=== PATIENT | male | born 1940 | race Hispanic/Latino ===

== ENCOUNTER → 2019-04-21 | Outpatient (CLI) | payer MEDICARE ==
[~2019-04-21] MED LIST: ASPIRIN81 MG PO; AVODART0.5 MG PO; CARAFATE; CARVEDILOL12.5 MG PO; DICYCLOMINE HCL10 MG PO; FAMOTIDINE20 MG PO; VOLTAREN50 M1 PO; Z.0.AMLODIPINE BES2. PO; Z.0.CARDURA4 MG PO; Z.0.EFFEXOR XR150 MG PO; Z.0.ENALAPRIL MALEA2 PO; Z.0.OMEPRAZOLE40 MG PO; Z.2.DOXAZOSIN MESYLA PO
[2019-04-21 14:19] LABS: BASOPHILS % 0.3 % (0.0-1.0); EOSINOPHILS # (AUTO) 0.1 (0.0-0.4); EOSINOPHILS % 2.4 % (0.0-6.0); HEMATOCRIT 44.8 % (38.2-49.6); HEMOGLOBIN 15.4 g/dL (14.0-18.0); LYMPHOCYTES # (AUTO) 2.1 (1.0-3.2); LYMPHOCYTES % 34.5 % (18.0-39.1); MEAN CORPUSCULAR HEMOGLOBIN 32.3 pg (28-32); MEAN CORPUSCULAR HGB CONC 34.4 g/dL (31-35); MEAN CORPUSCULAR VOLUME 93.9 fL (81-99); MONOCYTES # (AUTO) 0.7 (0.2-0.8); MONOCYTES % 11.6 % (4.4-11.3); NEUTROPHILS % 50.9 % (38.7-80.0); PLATELET COUNT 212 x10e3/uL (140-360); RED BLOOD COUNT 4.77 x10e6/uL (4.3-5.7); RED CELL DISTRIBUTION WIDTH 12.1 % (11.7-14.4)
== END ==
LOC: DX 15:35 → EDSTATUS 05-27 10:00
PROVIDERS: ATTEND Internal Medicine Gastroenterology
DX: Z01.818 Encounter for other preprocedural examination (principal); Z12.11 Encounter for screening for malignant neoplasm of colon; R10.9 Unspecified abdominal pain; Z53.8 Procedure and treatment not carried out for other reasons
CPT/HCPCS: 36415; 85025; 93005

== ENCOUNTER 2021-03-01 10:57 | Emergency (ER) | payer MEDICARE ==
[~2021-03-01] VITALS: Ht 167.6 cm; Wt 69.9 kg
[2021-03-01] MEDS ORDERED: ASPIRIN 81 MG CHEW TAB PO ONE (11:15)
[2021-03-01 11:43] LABS: BASOPHILS % 0.4 % (0.0-1.0); EOSINOPHILS % 0.2 % (0.0-6.0); HEMATOCRIT 41.9 % (38.2-49.6); HEMOGLOBIN 13.7 g/dL (14.0-18.0); LYMPHOCYTES # (AUTO) 1.1 (1.0-3.2); MEAN CORPUSCULAR HEMOGLOBIN 31.4 pg (28-32); MEAN CORPUSCULAR HGB CONC 32.7 g/dL (31-35); MEAN CORPUSCULAR VOLUME 95.9 fL (81-99); MONOCYTES # (AUTO) 0.9 (0.2-0.8); NEUTROPHILS # (AUTO) 3.6 (2.1-6.9); NEUTROPHILS % 63.2 % (38.7-80.0); PLATELET COUNT 205 x10e3/uL (140-360); RED BLOOD COUNT 4.37 x10e6/uL (4.3-5.7); RED CELL DISTRIBUTION WIDTH 13.9 % (11.7-14.4)
[2021-03-01 11:55] LABS: INR 1.34; PROTHROMBIN TIME 17.5 seconds (11.9-14.5)
[2021-03-01 11:56] LABS: PARTIAL THROMBOPLASTIN TIME 38.5 seconds (23.8-35.5)
[2021-03-01 12:06] LABS: ALBUMIN 3.7 g/dL (3.5-5.0); ALBUMIN/GLOBULIN RATIO 1.3 (0.8-2.0); ANION GAP 16.8 mmol/L (8-16); CREATININE, SERUM 1.55 mg/dL (0.72-1.25); POTASSIUM 3.8 mmol/L (3.5-5.1)
[2021-03-01 12:13] LABS: CREATINE KINASE MB 4.8 ng/mL (0-5.0)
[2021-03-01] MEDS ORDERED: FUROSEMIDE INJ 10 MG/ML 4 ML VIAL IV NR (13:15)
[2021-03-01 13:54] VITALS: BP 144/66
== END 2021-03-01 14:00 | disposition home or self-care (01) ==
LOC: ER 11:22
DX: I50.9 Heart failure, unspecified (principal); R07.89 Other chest pain; I10 Essential (primary) hypertension; I48.91 Unspecified atrial fibrillation; Z20.822 Contact with and (suspected) exposure to COVID-19; R94.31 Abnormal electrocardiogram [ECG] [EKG]
CPT/HCPCS: 36415; 71045; 80053; 82550; 82553; 83880; 84484; 85025; 85610; 85730; 93005; 99284; J1940; U0002

== ENCOUNTER 2021-08-22 16:26 | Inpatient (IN) | payer MEDICARE ==
[~2021-08-22] VITALS: Ht 167.6 cm; Wt 71.7 kg
[2021-08-22] MEDS ORDERED: ONDANSETRON HCL INJ 2MG/ML 2ML 2 MG/ML VIAL IV PRN ×2 (17:00→20:00)
[2021-08-22] MEDS ORDERED: Morphine 4mg INJECTION 4 MG/ML INJ IV PRN (17:00)
[2021-08-22 17:31] LABS: BASOPHILS % 0.4 % (0.0-1.0); EOSINOPHILS % 0.4 % (0.0-6.0); HEMATOCRIT 40.3 % (38.2-49.6); HEMOGLOBIN 13.8 g/dL (14.0-18.0); LYMPHOCYTES # (AUTO) 1.4 (1.0-3.2); LYMPHOCYTES % 27.9 % (18.0-39.1); MEAN CORPUSCULAR HEMOGLOBIN 32.1 pg (28-32); MEAN CORPUSCULAR HGB CONC 34.2 g/dL (31-35); MEAN CORPUSCULAR VOLUME 93.7 fL (81-99); MONOCYTES # (AUTO) 0.8 (0.2-0.8); MONOCYTES % 15.5 % (4.4-11.3); NEUTROPHILS # (AUTO) 2.8 (2.1-6.9); NEUTROPHILS % 55.6 % (38.7-80.0); PLATELET COUNT 207 x10e3/uL (140-360); RED CELL DISTRIBUTION WIDTH 13.8 % (11.7-14.4)
[2021-08-22 17:50] LABS: ALBUMIN 3.6 g/dL (3.5-5.0); ALBUMIN/GLOBULIN RATIO 1.2 (0.8-2.0); ANION GAP 15.7 mmol/L (8-16); CREATININE, SERUM 2.25 mg/dL (0.72-1.25); POTASSIUM 3.7 mmol/L (3.5-5.1)
[2021-08-22] MEDS ORDERED: FUROSEMIDE INJ 10 MG/ML 4 ML VIAL IV ONE (18:00)
[2021-08-22] MEDS ORDERED: DONNATAL/LIDOCAINE/MAALOX 30 ML SUSP PO SCH (18:15)
[2021-08-22] MEDS ORDERED: SODIUM CHLORIDE FLUSH 10 ML SYR INJ PRN (20:00)
[2021-08-22 20:25] LABS: CLARITY,URINE SL CLOUDY (CLEAR); COLOR,URINE AMBER (YELLOW); KETONES,URINE NEGATIVE (NEGATIVE); LEUKOCYTE ESTERASE ,URINE NEGATIVE (NEGATIVE); NITRITE,URINE NEGATIVE (NEGATIVE); PROTEIN,URINE DIPSTICK 1+ (NEGATIVE); URINE UROBILINOGEN 0.2 mg/dL (0.2 - 1)
[2021-08-22 20:31] LABS: BACTERIA,URINE MODERATE /HPF; WBC,URINE (MAN) 0-5 /HPF (0-5)
[2021-08-22 20:32] LABS: AMORPHOUS SEDIMENT,URINE FEW (FEW)
[2021-08-22] MEDS ORDERED: FUROSEMIDE INJ 10 MG/ML 4 ML VIAL IV SCH (21:00)
[2021-08-22 22:20] VITALS: BP 124/68
[2021-08-22] MEDS ORDERED: CLOTRIMAZOLE-BE15 GM TOP (22:26)
[2021-08-22] MEDS ORDERED: PANTOPRAZOLE SO40 MG PO (22:26)
[2021-08-22] MEDS ORDERED: FUROSEMIDE40 MG PO (22:26)
[2021-08-22] MEDS ORDERED: OMEPRAZOLE40 MG PO (22:26)
[2021-08-22] MEDS ORDERED: DUTASTERIDE0.5 MG PO (22:26)
[2021-08-22] MEDS ORDERED: ENTRESTO 24 MG1 EACH PO (22:26)
[2021-08-22 22:35] VITALS: BP 100/54
[2021-08-23] VITALS (7 sets, daily range): BP systolic 94–124; BP diastolic 51–68
[2021-08-23 03:11] LABS: CREATINE KINASE MB 2.2 ng/mL (0-5.0)
[2021-08-23] MEDS ORDERED: PANTOPRAZOLE SOD 40 MG TABEC PO SCH (09:00)
[2021-08-23] MEDS ORDERED: METOPROLOL TARTRATE 25 MG TAB PO SCH (09:00)
[2021-08-23] MEDS: FUROSEMIDE INJ 10 MG/ML 4 ML VIAL IV SCH (10:11)
[2021-08-23] MEDS: PANTOPRAZOLE SOD 40 MG TABEC PO SCH ×2 (10:12→18:05)
[2021-08-23] MEDS: DUTASTERIDE 0.5 MG CAP PO SCH (10:12)
[2021-08-23] MEDS: ASPIRIN 81 MG ENTERIC COATED PO SCH (10:19)
[2021-08-23] MEDS: VALSARTAN/SACUBITRIL 24MG/26MG 1 EA TAB PO SCH ×2 (10:19→18:05)
[2021-08-23 11:09] LABS: CREATINE KINASE MB 2.2 ng/mL (0-5.0)
[2021-08-23 19:14] LABS: BASOPHILS % 0.4 % (0.0-1.0); EOSINOPHILS % 0.5 % (0.0-6.0); HEMATOCRIT 45.8 % (38.2-49.6); HEMOGLOBIN 14.5 g/dL (14.0-18.0); LYMPHOCYTES # (AUTO) 1.1 (1.0-3.2); LYMPHOCYTES % 19.9 % (18.0-39.1); MEAN CORPUSCULAR HEMOGLOBIN 31.9 pg (28-32); MEAN CORPUSCULAR HGB CONC 31.7 g/dL (31-35); MEAN CORPUSCULAR VOLUME 100.7 fL (81-99); MONOCYTES # (AUTO) 0.9 (0.2-0.8); MONOCYTES % 16.9 % (4.4-11.3); NEUTROPHILS # (AUTO) 3.4 (2.1-6.9); NEUTROPHILS % 62.1 % (38.7-80.0); PLATELET COUNT 172 x10e3/uL (140-360); RED BLOOD COUNT 4.55 x10e6/uL (4.3-5.7)
[2021-08-23 19:35] LABS: ALBUMIN 3.5 g/dL (3.5-5.0); ALBUMIN/GLOBULIN RATIO 1.3 (0.8-2.0); ANION GAP 20.2 mmol/L (8-16); CALCIUM 7.9 mg/dL (8.4-10.2); CREATININE, SERUM 2.87 mg/dL (0.72-1.25); POTASSIUM 4.2 mmol/L (3.5-5.1)
[2021-08-23 19:41] LABS: CREATINE KINASE MB 2.4 ng/mL (0-5.0)
[2021-08-23 20:35] LABS: THYROID STIMULATING HORMONE 0.818 uIU/mL (0.350-4.940)
[2021-08-23] MEDS: ACETAMINOPHEN 325 MG TAB PO PRN (21:17)
[2021-08-24] VITALS (8 sets, daily range): BP systolic 95–109; BP diastolic 48–55
[2021-08-24 06:42] LABS: BASOPHILS % 0.6 % (0.0-1.0); EOSINOPHILS % 0.7 % (0.0-6.0); HEMATOCRIT 40.8 % (38.2-49.6); HEMOGLOBIN 13.7 g/dL (14.0-18.0); LYMPHOCYTES # (AUTO) 1.6 (1.0-3.2); LYMPHOCYTES % 28.7 % (18.0-39.1); MEAN CORPUSCULAR HEMOGLOBIN 31.8 pg (28-32); MEAN CORPUSCULAR HGB CONC 33.6 g/dL (31-35); MEAN CORPUSCULAR VOLUME 94.7 fL (81-99); MONOCYTES % 18.1 % (4.4-11.3); NEUTROPHILS # (AUTO) 2.8 (2.1-6.9); NEUTROPHILS % 51.9 % (38.7-80.0); PLATELET COUNT 172 x10e3/uL (140-360); RED BLOOD COUNT 4.31 x10e6/uL (4.3-5.7); RED CELL DISTRIBUTION WIDTH 13.5 % (11.7-14.4)
[2021-08-24 06:56] LABS: INR 1.42; PROTHROMBIN TIME 18.5 seconds (11.9-14.5)
[2021-08-24 06:57] LABS: PARTIAL THROMBOPLASTIN TIME 39.7 seconds (23.8-35.5)
[2021-08-24 07:17] LABS: ALBUMIN 3.3 g/dL (3.5-5.0); ALBUMIN/GLOBULIN RATIO 1.2 (0.8-2.0); ANION GAP 17.9 mmol/L (8-16); CALCIUM 7.7 mg/dL (8.4-10.2); CHOL/HDL RATIO 2.6 (3.9-4.7); CREATININE, SERUM 3.29 mg/dL (0.72-1.25); POTASSIUM 3.9 mmol/L (3.5-5.1)
[2021-08-24 07:37] LABS: THYROID STIMULATING HORMONE 1.209 uIU/mL (0.350-4.940)
[2021-08-24] MEDS: DUTASTERIDE 0.5 MG CAP PO SCH (08:24)
[2021-08-24] MEDS: VALSARTAN/SACUBITRIL 24MG/26MG 1 EA TAB PO SCH (08:24)
[2021-08-24] MEDS: PANTOPRAZOLE SOD 40 MG TABEC PO SCH ×2 (08:25→15:45)
[2021-08-24] MEDS: ASPIRIN 81 MG ENTERIC COATED PO SCH (08:25)
[2021-08-24] MEDS: FUROSEMIDE INJ 10 MG/ML 4 ML VIAL IV SCH ×3 (08:25→21:02)
[2021-08-24] MEDS ORDERED: ONDANSETRON HCL 4 MG ORAL DISINTEGRATING TAB PO PRN (11:15)
[2021-08-24 13:56] LABS: TOTAL PROTEIN, URINE 22.3 mg/dL (1-14)
[2021-08-24 13:58] LABS: CLARITY,URINE CLEAR (CLEAR); COLOR,URINE YELLOW (YELLOW); KETONES,URINE NEGATIVE (NEGATIVE); LEUKOCYTE ESTERASE ,URINE NEGATIVE (NEGATIVE); NITRITE,URINE NEGATIVE (NEGATIVE); PROTEIN,URINE DIPSTICK 1+ (NEGATIVE); URINE UROBILINOGEN 0.2 mg/dL (0.2 - 1)
[2021-08-24 14:02] LABS: BACTERIA,URINE MODERATE /HPF; EPITHELIAL CELLS,URINE FEW /LPF
[2021-08-24 14:45] LABS: CREATININE,URINE RANDOM 112.94 mg/dL (63-166)
[2021-08-24] MEDS: ACETAMINOPHEN 325 MG TAB PO PRN (15:45)
[2021-08-25] VITALS: BP 109/71
[2021-08-25] MEDS: ACETAMINOPHEN 325 MG TAB PO PRN (00:28)
[2021-08-25 04:00] VITALS: BP 111/51
[2021-08-25 07:14] LABS: ALBUMIN 3.3 g/dL (3.5-5.0); ALBUMIN/GLOBULIN RATIO 1.3 (0.8-2.0); ANION GAP 15.9 mmol/L (8-16); CALCIUM 7.9 mg/dL (8.4-10.2); CREATININE, SERUM 3.33 mg/dL (0.72-1.25); MAGNESIUM 2.2 MG/DL (1.3-2.1); POTASSIUM 3.9 mmol/L (3.5-5.1)
[2021-08-25 08:32] VITALS: BP 117/53
[2021-08-25] MEDS ORDERED: FUROSEMIDE INJ 10 MG/ML 4 ML VIAL IV ONE ×2 (09:00)
[2021-08-25] MEDS: PANTOPRAZOLE SOD 40 MG TABEC PO SCH ×2 (09:04→16:37)
[2021-08-25] MEDS: DUTASTERIDE 0.5 MG CAP PO SCH (09:04)
[2021-08-25] MEDS: ASPIRIN 81 MG ENTERIC COATED PO SCH (09:04)
[2021-08-25 09:13] VITALS: BP 117/53
[2021-08-25 17:18] VITALS: BP 108/54
[2021-08-25 20:00] VITALS: BP 113/49
[2021-08-26] VITALS: BP 119/53
[2021-08-26] MEDS: ACETAMINOPHEN 325 MG TAB PO PRN (02:21)
[2021-08-26 04:00] VITALS: BP 118/52
[2021-08-26 08:00] VITALS: BP 118/52
[2021-08-26 08:44] VITALS: BP 129/57
[2021-08-26] MEDS: DUTASTERIDE 0.5 MG CAP PO SCH (09:06)
[2021-08-26] MEDS: PANTOPRAZOLE SOD 40 MG TABEC PO SCH (09:06)
[2021-08-26] MEDS: ASPIRIN 81 MG ENTERIC COATED PO SCH (09:06)
[2021-08-26] MEDS ORDERED: ASPIRIN EC81 MG PO (12:29)
[2021-08-26] MEDS ORDERED: ATORVASTATIN CA20 MG PO (12:29)
[2021-08-26 12:30] VITALS: BP 118/50
[2021-08-26 16:24] VITALS: BP 126/47
== END 2021-08-26 16:26 | disposition home or self-care (01) | DRG 291 ==
LOC: ER 16:38 → ERHOLD 19:56 → INTOOBSV 19:56 → MED/SURG2 22:08 → OBSVTOIN 08-24 10:58
PROVIDERS: ADMIT Internal Medicine; ATTEND Internal Medicine
DX: I13.0 Hypertensive heart and chronic kidney disease with heart failure and stage 1 through stage 4 chronic kidney disease, or unspecified chronic kidney disease (principal); I50.33 Acute on chronic diastolic (congestive) heart failure; N17.9 Acute kidney failure, unspecified; N18.4 Chronic kidney disease, stage 4 (severe); K29.70 Gastritis, unspecified, without bleeding; I48.91 Unspecified atrial fibrillation; I77.819 Aortic ectasia, unspecified site; I35.1 Nonrheumatic aortic (valve) insufficiency; K57.30 Diverticulosis of large intestine without perforation or abscess without bleeding; R06.01 Orthopnea; I25.10 Atherosclerotic heart disease of native coronary artery without angina pectoris; Z90.49 Acquired absence of other specified parts of digestive tract; N40.0 Benign prostatic hyperplasia without lower urinary tract symptoms
CPT/HCPCS: 36415; 71046; 71250; 74176; 76770; 80053; 80061; 81001; 82550; 82553; 82570; 82948; 83690; 83735; 83880; 84156; 84436; 84443; 84479; 84484; 84550; 85025; 85610; 85730; 93005; 93306; 94799; 99284; G0378; J1940; J2270; J2405

== ENCOUNTER 2021-12-12 17:14 | Inpatient (IN) | payer MEDICARE ==
[~2021-12-12] VITALS: Ht 167.6 cm; Wt 64.4 kg
[~2021-12-12 17:14] MED LIST changes: +ASPIRIN EC81 MG PO; +ATORVASTATIN CA20 MG PO; +CLOTRIMAZOLE-BE15 GM TOP; +DUTASTERIDE0.5 MG PO; +ENTRESTO 24 MG1 EACH PO; +FUROSEMIDE40 MG PO; +OMEPRAZOLE40 MG PO; +PANTOPRAZOLE SO40 MG PO
[2021-12-12 18:42] LABS: BASOPHILS % 0.1 % (0.0-1.0); EOSINOPHILS % 0.1 % (0.0-6.0); HEMATOCRIT 33.5 % (38.2-49.6); HEMOGLOBIN 11.6 g/dL (14.0-18.0); LYMPHOCYTES # (AUTO) 0.4 (1.0-3.2); LYMPHOCYTES % 5.5 % (18.0-39.1); MEAN CORPUSCULAR HEMOGLOBIN 30.9 pg (28-32); MEAN CORPUSCULAR HGB CONC 34.6 g/dL (31-35); MEAN CORPUSCULAR VOLUME 89.3 fL (81-99); MONOCYTES # (AUTO) 0.8 (0.2-0.8); MONOCYTES % 9.7 % (4.4-11.3); NEUTROPHILS # (AUTO) 6.6 (2.1-6.9); NEUTROPHILS % 84.2 % (38.7-80.0); PLATELET COUNT 195 x10e3/uL (140-360); RED BLOOD COUNT 3.75 x10e6/uL (4.3-5.7); RED CELL DISTRIBUTION WIDTH 16.5 % (11.7-14.4)
[2021-12-12 18:57] LABS: CLARITY,URINE CLEAR (CLEAR); COLOR,URINE YELLOW (YELLOW); KETONES,URINE NEGATIVE (NEGATIVE); LEUKOCYTE ESTERASE ,URINE TRACE (NEGATIVE); NITRITE,URINE NEGATIVE (NEGATIVE); PROTEIN,URINE DIPSTICK TRACE (NEGATIVE); URINE UROBILINOGEN 0.2 mg/dL (0.2 - 1)
[2021-12-12 19:01] LABS: AMORPHOUS SEDIMENT,URINE FEW (FEW); BACTERIA,URINE FEW /HPF; WBC,URINE (MAN) 0-5 /HPF (0-5)
[2021-12-12 19:01] LABS: ALBUMIN 2.5 g/dL (3.5-5.0); ALBUMIN/GLOBULIN RATIO 0.8 (0.8-2.0); ANION GAP 16.4 mmol/L (8-16); CREATININE, SERUM 2.91 mg/dL (0.72-1.25); POTASSIUM 3.4 mmol/L (3.5-5.1)
[2021-12-12] MEDS ORDERED: ACETAMINOPHEN 1000 MG/100 ML IV STA (19:27)
[2021-12-12] MEDS ORDERED: ONDANSETRON HCL INJ 2MG/ML 2ML 2 MG/ML VIAL IV PRN (20:45)
[2021-12-12] MEDS ORDERED: Morphine 2mg Syringe 2 MG/ML SYR IV PRN (20:45)
[2021-12-12] MEDS ORDERED: SODIUM CHLORIDE 0.9% 1000ML 1,000 ML IV ONE (20:45)
[2021-12-13] VITALS (9 sets, daily range): BP systolic 97–116; BP diastolic 50–58
[2021-12-13] MEDS ORDERED: HYDRALAZINE HCL 20 MG/ML VIAL IV PRN (00:30)
[2021-12-13] MEDS ORDERED: GUAIFENESIN/DEXTROMETHORPHAN LIQD 5 ML UDC PO PRN (00:30)
[2021-12-13] MEDS ORDERED: IPRATROPIUM BROMIDE 0.02% 2.5 ML NEB NEB PRN (00:30)
[2021-12-13] MEDS ORDERED: ALBUTEROL SULF 0.083% NEB SOLN 3 ML NEB NEB PRN (00:30)
[2021-12-13] MEDS: ACETAMINOPHEN 325 MG TAB PO PRN (01:16)
[2021-12-13 06:18] LABS: BASOPHILS % 0.2 % (0.0-1.0); EOSINOPHILS # (AUTO) 0.1 (0.0-0.4); EOSINOPHILS % 1.2 % (0.0-6.0); HEMATOCRIT 31.8 % (38.2-49.6); HEMOGLOBIN 10.6 g/dL (14.0-18.0); LYMPHOCYTES # (AUTO) 0.6 (1.0-3.2); LYMPHOCYTES % 9.1 % (18.0-39.1); MEAN CORPUSCULAR HEMOGLOBIN 30.4 pg (28-32); MEAN CORPUSCULAR HGB CONC 33.3 g/dL (31-35); MEAN CORPUSCULAR VOLUME 91.1 fL (81-99); MONOCYTES # (AUTO) 0.7 (0.2-0.8); MONOCYTES % 11.7 % (4.4-11.3); NEUTROPHILS # (AUTO) 4.7 (2.1-6.9); NEUTROPHILS % 77.5 % (38.7-80.0); PLATELET COUNT 175 x10e3/uL (140-360); RED BLOOD COUNT 3.49 x10e6/uL (4.3-5.7); RED CELL DISTRIBUTION WIDTH 16.4 % (11.7-14.4)
[2021-12-13 06:24] LABS: INR 1.48; PROTHROMBIN TIME 19.2 seconds (11.9-14.5)
[2021-12-13 06:25] LABS: PARTIAL THROMBOPLASTIN TIME 47.3 seconds (23.8-35.5)
[2021-12-13 06:33] LABS: ALBUMIN 2.2 g/dL (3.5-5.0); ALBUMIN/GLOBULIN RATIO 0.7 (0.8-2.0); ANION GAP 16.1 mmol/L (8-16); CALCIUM 8.1 mg/dL (8.4-10.2); CREATININE, SERUM 2.68 mg/dL (0.72-1.25); POTASSIUM 3.1 mmol/L (3.5-5.1)
[2021-12-13 07:01] LABS: MAGNESIUM 1.8 MG/DL (1.3-2.1); PHOSPHORUS 3.5 MG/DL (2.3-4.7)
[2021-12-13 07:02] LABS: % IRON SATURATION 9 % (15-50); IRON 15 ug/dL (65-175); TOTAL IRON BINDING CAPACITY 174 ug/dL (261-478); TRANSFERRIN 124 mg/dL (174-364)
[2021-12-13 07:19] LABS: FERRITIN 172.47 ng/mL (21.81-274.66)
[2021-12-13] MEDS: PANTOPRAZOLE SOD 40 MG TABEC PO SCH (07:30)
[2021-12-13] MEDS ORDERED: MULTIVITAMINS/MINERALS TAB PO SCH (09:00)
[2021-12-13] MEDS ORDERED: ACETAMINOPHEN 1000 MG/100 ML IV PRN (09:15)
[2021-12-13] MEDS: ACETAMINOPHEN/CODEINE 300MG - 30MG TAB PO PRN ×4 (09:40→22:38)
[2021-12-13] MEDS: DUTASTERIDE 0.5 MG CAP PO SCH (09:40)
[2021-12-13] MEDS: FUROSEMIDE 40 MG TAB PO SCH (09:41)
[2021-12-14] VITALS (8 sets, daily range): BP systolic 99–119; BP diastolic 52–74
[2021-12-14 05:59] LABS: BASOPHILS % 0.2 % (0.0-1.0); EOSINOPHILS # (AUTO) 0.1 (0.0-0.4); EOSINOPHILS % 2.2 % (0.0-6.0); HEMATOCRIT 30.7 % (38.2-49.6); HEMOGLOBIN 10.6 g/dL (14.0-18.0); LYMPHOCYTES # (AUTO) 0.7 (1.0-3.2); LYMPHOCYTES % 12.2 % (18.0-39.1); MEAN CORPUSCULAR HEMOGLOBIN 30.8 pg (28-32); MEAN CORPUSCULAR HGB CONC 34.5 g/dL (31-35); MEAN CORPUSCULAR VOLUME 89.2 fL (81-99); MONOCYTES # (AUTO) 0.8 (0.2-0.8); MONOCYTES % 14.5 % (4.4-11.3); NEUTROPHILS # (AUTO) 3.9 (2.1-6.9); NEUTROPHILS % 70.5 % (38.7-80.0); PLATELET COUNT 187 x10e3/uL (140-360); RED BLOOD COUNT 3.44 x10e6/uL (4.3-5.7); RED CELL DISTRIBUTION WIDTH 16.5 % (11.7-14.4)
[2021-12-14] MEDS: ACETAMINOPHEN/CODEINE 300MG - 30MG TAB PO PRN ×3 (06:17→17:37)
[2021-12-14 06:29] LABS: ANION GAP 13.4 mmol/L (8-16); CALCIUM 8.1 mg/dL (8.4-10.2); CREATININE, SERUM 2.42 mg/dL (0.72-1.25); POTASSIUM 3.4 mmol/L (3.5-5.1)
[2021-12-14] MEDS: PANTOPRAZOLE SOD 40 MG TABEC PO SCH (08:30)
[2021-12-14] MEDS: FUROSEMIDE 40 MG TAB PO SCH (10:00)
[2021-12-14] MEDS: DUTASTERIDE 0.5 MG CAP PO SCH (10:00)
[2021-12-14] MEDS: MIDODRINE 2.5 MG TAB PO SCH ×2 (13:15→17:25)
[2021-12-14] MEDS ORDERED: METOPROLOL SUCCINATE 25 MG TAB XL PO SCH (13:45)
[2021-12-14] MEDS ORDERED: ONDANSETRON HCL 4 MG ORAL DISINTEGRATING TAB PO PRN (15:30)
[2021-12-14] MEDS: METOPROLOL SUCCINATE 25 MG TAB XL PO SCH (21:00)
[2021-12-15] VITALS (8 sets, daily range): BP systolic 97–111; BP diastolic 48–60
[2021-12-15] MEDS: ACETAMINOPHEN/CODEINE 300MG - 30MG TAB PO PRN ×5 (01:30→23:45)
[2021-12-15] MEDS: METOPROLOL SUCCINATE 25 MG TAB XL PO SCH (09:00)
[2021-12-15] MEDS: PANTOPRAZOLE SOD 40 MG TABEC PO SCH (09:14)
[2021-12-15] MEDS: DUTASTERIDE 0.5 MG CAP PO SCH (09:15)
[2021-12-15] MEDS: MIDODRINE 2.5 MG TAB PO SCH ×3 (09:16→17:06)
[2021-12-15] MEDS: FUROSEMIDE 40 MG TAB PO SCH (12:30)
[2021-12-16] VITALS (7 sets, daily range): BP systolic 96–126; BP diastolic 48–80
[2021-12-16 05:43] LABS: BASOPHILS % 0.3 % (0.0-1.0); EOSINOPHILS # (AUTO) 0.1 (0.0-0.4); EOSINOPHILS % 1.3 % (0.0-6.0); HEMATOCRIT 33.9 % (38.2-49.6); HEMOGLOBIN 11.7 g/dL (14.0-18.0); LYMPHOCYTES # (AUTO) 0.8 (1.0-3.2); LYMPHOCYTES % 11.6 % (18.0-39.1); MEAN CORPUSCULAR HEMOGLOBIN 30.6 pg (28-32); MEAN CORPUSCULAR HGB CONC 34.5 g/dL (31-35); MEAN CORPUSCULAR VOLUME 88.7 fL (81-99); MONOCYTES # (AUTO) 0.9 (0.2-0.8); MONOCYTES % 12.5 % (4.4-11.3); NEUTROPHILS # (AUTO) 5.2 (2.1-6.9); NEUTROPHILS % 73.9 % (38.7-80.0); PLATELET COUNT 228 x10e3/uL (140-360); RED BLOOD COUNT 3.82 x10e6/uL (4.3-5.7); RED CELL DISTRIBUTION WIDTH 16.3 % (11.7-14.4)
[2021-12-16 06:26] LABS: ALBUMIN 2.3 g/dL (3.5-5.0); ALBUMIN/GLOBULIN RATIO 0.6 (0.8-2.0); ANION GAP 17.6 mmol/L (8-16); CALCIUM 8.4 mg/dL (8.4-10.2); CREATININE, SERUM 2.49 mg/dL (0.72-1.25); POTASSIUM 3.6 mmol/L (3.5-5.1)
[2021-12-16] MEDS: PANTOPRAZOLE SOD 40 MG TABEC PO SCH (07:30)
[2021-12-16] MEDS: MIDODRINE 2.5 MG TAB PO SCH ×3 (08:00→17:20)
[2021-12-16] MEDS: DUTASTERIDE 0.5 MG CAP PO SCH (09:00)
[2021-12-16] MEDS: FUROSEMIDE 40 MG TAB PO SCH (09:00)
[2021-12-16] MEDS ORDERED: SODIUM CHLORIDE 0.9% 250ML 250 ML ONE ×2 (09:58→22:26)
[2021-12-16] MEDS ORDERED: IOPAMIDOL 300MG/ML 100 ML INFUS..BTL IV ONE (09:58)
[2021-12-16] MEDS ORDERED: LIDOCAINE HCL 1% LOCAL INJ 20 ML VIAL ONE (09:58)
[2021-12-16] MEDS: ACETAMINOPHEN 325 MG TAB PO PRN (11:58)
[2021-12-16] MEDS: ACETAMINOPHEN/CODEINE 300MG - 30MG TAB PO PRN (17:20)
[2021-12-17] VITALS (8 sets, daily range): BP systolic 96–134; BP diastolic 48–67
[2021-12-17] MEDS ORDERED: FUROSEMIDE 40 MG TAB PO SCH (09:00)
[2021-12-17] MEDS: DUTASTERIDE 0.5 MG CAP PO SCH (09:10)
[2021-12-17] MEDS: MIDODRINE 2.5 MG TAB PO SCH ×3 (09:10→17:45)
[2021-12-17] MEDS: PANTOPRAZOLE SOD 40 MG TABEC PO SCH (09:11)
[2021-12-17] MEDS: FUROSEMIDE 40 MG TAB PO SCH (09:11)
[2021-12-17] MEDS: ACETAMINOPHEN/CODEINE 300MG - 30MG TAB PO PRN ×3 (13:14→21:16)
[2021-12-17] MEDS: MELATONIN 3 MG TAB PO PRN (21:17)
[2021-12-18] VITALS: BP 125/59
[2021-12-18] MEDS: ACETAMINOPHEN/CODEINE 300MG - 30MG TAB PO PRN ×3 (01:15→18:38)
[2021-12-18 04:00] VITALS: BP 112/80
[2021-12-18 08:00] VITALS: BP 112/80
[2021-12-18 08:39] LABS: CALCIUM 8.9 mg/dL (8.4-10.2); CREATININE, SERUM 2.34 mg/dL (0.72-1.25); MAGNESIUM 1.9 MG/DL (1.3-2.1); PHOSPHORUS 4.5 MG/DL (2.3-4.7)
[2021-12-18 09:02] VITALS: BP 117/57
[2021-12-18] MEDS: DUTASTERIDE 0.5 MG CAP PO SCH (09:31)
[2021-12-18] MEDS: FUROSEMIDE 40 MG TAB PO SCH (09:31)
[2021-12-18] MEDS: PANTOPRAZOLE SOD 40 MG TABEC PO SCH (09:32)
[2021-12-18] MEDS: MIDODRINE 2.5 MG TAB PO SCH ×3 (09:32→18:33)
[2021-12-18 14:24] VITALS: BP 101/52
[2021-12-18 20:00] VITALS: BP 110/72
[2021-12-19] VITALS (9 sets, daily range): BP systolic 100–151; BP diastolic 50–70
[2021-12-19] MEDS: PANTOPRAZOLE SOD 40 MG TABEC PO SCH (07:30)
[2021-12-19] MEDS: MIDODRINE 2.5 MG TAB PO SCH ×3 (08:37→17:13)
[2021-12-19] MEDS: FUROSEMIDE 40 MG TAB PO SCH (08:38)
[2021-12-19] MEDS: DUTASTERIDE 0.5 MG CAP PO SCH (08:38)
[2021-12-19 11:06] LABS: BASOPHILS % 0.4 % (0.0-1.0); EOSINOPHILS # (AUTO) 0.1 (0.0-0.4); EOSINOPHILS % 0.7 % (0.0-6.0); HEMATOCRIT 37.8 % (38.2-49.6); HEMOGLOBIN 12.3 g/dL (14.0-18.0); LYMPHOCYTES # (AUTO) 0.7 (1.0-3.2); LYMPHOCYTES % 8.5 % (18.0-39.1); MEAN CORPUSCULAR HEMOGLOBIN 30.1 pg (28-32); MEAN CORPUSCULAR HGB CONC 32.5 g/dL (31-35); MEAN CORPUSCULAR VOLUME 92.4 fL (81-99); MONOCYTES # (AUTO) 0.6 (0.2-0.8); MONOCYTES % 7.5 % (4.4-11.3); NEUTROPHILS # (AUTO) 6.8 (2.1-6.9); NEUTROPHILS % 82.7 % (38.7-80.0); PLATELET COUNT 266 x10e3/uL (140-360); RED BLOOD COUNT 4.09 x10e6/uL (4.3-5.7); RED CELL DISTRIBUTION WIDTH 16.8 % (11.7-14.4)
[2021-12-19] MEDS ORDERED: SODIUM CHLORIDE 0.9% 250ML 250 ML ONE ×2 (11:08→11:57)
[2021-12-19] MEDS ORDERED: CEFTRIAXONE 1 GM VIAL ONE (11:08)
[2021-12-19 11:23] LABS: INR 1.33; PROTHROMBIN TIME 17.6 seconds (11.9-14.5)
[2021-12-19] MEDS ORDERED: LIDOCAINE HCL 1% LOCAL INJ 20 ML VIAL ONE (11:57)
[2021-12-19] MEDS ORDERED: IOPAMIDOL 300MG/ML 100 ML INFUS..BTL IV ONE (11:57)
[2021-12-19] MEDS ORDERED: FENTANYL CITRATE/PF 100MCG/2 ML INJ ONE (12:13)
[2021-12-19] MEDS ORDERED: MIDAZOLAM HCL 2 MG/2 ML VIAL ONE (12:13)
[2021-12-19] MEDS: FUROSEMIDE INJ 10 MG/ML 4 ML VIAL IV SCH ×2 (13:51→22:24)
[2021-12-19] MEDS: SODIUM BICARBONATE 650 MG TAB PO SCH (17:12)
[2021-12-19] MEDS: ACETAMINOPHEN/CODEINE 300MG - 30MG TAB PO PRN ×2 (17:17→22:25)
[2021-12-20] VITALS (7 sets, daily range): BP systolic 118–143; BP diastolic 51–73
[2021-12-20] MEDS: ACETAMINOPHEN/CODEINE 300MG - 30MG TAB PO PRN ×3 (04:52→23:22)
[2021-12-20 05:43] LABS: BASOPHILS % 0.3 % (0.0-1.0); EOSINOPHILS # (AUTO) 0.1 (0.0-0.4); EOSINOPHILS % 1.1 % (0.0-6.0); HEMATOCRIT 36.6 % (38.2-49.6); HEMOGLOBIN 12.4 g/dL (14.0-18.0); LYMPHOCYTES # (AUTO) 1.1 (1.0-3.2); MEAN CORPUSCULAR HEMOGLOBIN 30.3 pg (28-32); MEAN CORPUSCULAR HGB CONC 33.9 g/dL (31-35); MEAN CORPUSCULAR VOLUME 89.5 fL (81-99); MONOCYTES # (AUTO) 0.7 (0.2-0.8); MONOCYTES % 10.1 % (4.4-11.3); NEUTROPHILS # (AUTO) 4.7 (2.1-6.9); PLATELET COUNT 311 x10e3/uL (140-360); RED BLOOD COUNT 4.09 x10e6/uL (4.3-5.7); RED CELL DISTRIBUTION WIDTH 16.6 % (11.7-14.4)
[2021-12-20 06:10] LABS: ALBUMIN 2.4 g/dL (3.5-5.0); ALBUMIN/GLOBULIN RATIO 0.6 (0.8-2.0); ANION GAP 18.4 mmol/L (8-16); CALCIUM 8.7 mg/dL (8.4-10.2); CREATININE, SERUM 1.85 mg/dL (0.72-1.25); POTASSIUM 3.4 mmol/L (3.5-5.1)
[2021-12-20] MEDS: PANTOPRAZOLE SOD 40 MG TABEC PO SCH (09:15)
[2021-12-20] MEDS: MIDODRINE 2.5 MG TAB PO SCH ×3 (09:16→17:15)
[2021-12-20] MEDS: DUTASTERIDE 0.5 MG CAP PO SCH (09:16)
[2021-12-20] MEDS: FUROSEMIDE INJ 10 MG/ML 4 ML VIAL IV SCH (09:16)
[2021-12-20] MEDS: SODIUM BICARBONATE 650 MG TAB PO SCH ×2 (09:16→17:14)
[2021-12-20] MEDS ORDERED: POTASSIUM CHLORIDE 10MEQ EA PO ONE (11:30)
[2021-12-20] MEDS ORDERED: PHENAZOPYRIDINE HCL 100 MG TAB PO PRN (20:00)
[2021-12-20] MEDS: PHENAZOPYRIDINE HCL 100 MG TAB PO PRN (20:35)
[2021-12-20] MEDS: TAMSULOSIN HCL 0.4 MG CAP PO SCH (20:35)
[2021-12-20] MEDS: MELATONIN 3 MG TAB PO PRN (22:44)
[2021-12-21] VITALS (8 sets, daily range): BP systolic 97–129; BP diastolic 47–65
[2021-12-21] MEDS: ACETAMINOPHEN/CODEINE 300MG - 30MG TAB PO PRN ×2 (06:30→19:10)
[2021-12-21] MEDS: PANTOPRAZOLE SOD 40 MG TABEC PO SCH (09:03)
[2021-12-21] MEDS: SODIUM BICARBONATE 650 MG TAB PO SCH ×2 (09:03→18:19)
[2021-12-21] MEDS: MIDODRINE 2.5 MG TAB PO SCH ×3 (09:04→18:19)
[2021-12-21] MEDS: DUTASTERIDE 0.5 MG CAP PO SCH (09:04)
[2021-12-21] MEDS: TAMSULOSIN HCL 0.4 MG CAP PO SCH (22:15)
[2021-12-22] VITALS (8 sets, daily range): BP systolic 89–127; BP diastolic 43–98
[2021-12-22] MEDS ORDERED: PHENYLEPH/SHARK OIL/MO/PETROL 30 GM OINT RC PRN (02:30)
[2021-12-22 06:05] LABS: BASOPHILS % 0.4 % (0.0-1.0); EOSINOPHILS # (AUTO) 0.1 (0.0-0.4); HEMATOCRIT 38.8 % (38.2-49.6); HEMOGLOBIN 12.5 g/dL (14.0-18.0); LYMPHOCYTES # (AUTO) 1.3 (1.0-3.2); LYMPHOCYTES % 18.7 % (18.0-39.1); MEAN CORPUSCULAR HEMOGLOBIN 30.6 pg (28-32); MEAN CORPUSCULAR HGB CONC 32.2 g/dL (31-35); MEAN CORPUSCULAR VOLUME 94.9 fL (81-99); MONOCYTES # (AUTO) 0.7 (0.2-0.8); MONOCYTES % 10.6 % (4.4-11.3); NEUTROPHILS # (AUTO) 4.7 (2.1-6.9); NEUTROPHILS % 68.9 % (38.7-80.0); PLATELET COUNT 262 x10e3/uL (140-360); RED BLOOD COUNT 4.09 x10e6/uL (4.3-5.7); RED CELL DISTRIBUTION WIDTH 18.1 % (11.7-14.4)
[2021-12-22 06:26] LABS: ANION GAP 19.7 mmol/L (8-16); CALCIUM 8.4 mg/dL (8.4-10.2); CREATININE, SERUM 2.08 mg/dL (0.72-1.25); POTASSIUM 3.7 mmol/L (3.5-5.1)
[2021-12-22] MEDS: DOCUSATE SODIUM 100 MG CAP PO PRN ×2 (09:15→15:18)
[2021-12-22] MEDS: MAGNESIUM/ALUMINUM/SIMETHICONE 30 ML UDC PO PRN (09:16)
[2021-12-22] MEDS: PANTOPRAZOLE SOD 40 MG TABEC PO SCH (09:16)
[2021-12-22] MEDS: DUTASTERIDE 0.5 MG CAP PO SCH (09:17)
[2021-12-22] MEDS: SODIUM BICARBONATE 650 MG TAB PO SCH ×2 (09:17→18:20)
[2021-12-22] MEDS: MIDODRINE 2.5 MG TAB PO SCH ×3 (09:17→15:17)
[2021-12-22] MEDS: ACETAMINOPHEN/CODEINE 300MG - 30MG TAB PO PRN ×2 (15:17→21:23)
[2021-12-22] MEDS: PHENAZOPYRIDINE HCL 100 MG TAB PO PRN (18:20)
[2021-12-22] MEDS: TAMSULOSIN HCL 0.4 MG CAP PO SCH (21:15)
[2021-12-22] MEDS ORDERED: SODIUM CHLORIDE 0.9% 250ML 250 ML ONE (21:27)
[2021-12-23] VITALS (7 sets, daily range): BP systolic 90–117; BP diastolic 47–71
[2021-12-23] MEDS: ACETAMINOPHEN/CODEINE 300MG - 30MG TAB PO PRN ×2 (04:29→15:37)
[2021-12-23] MEDS: PHENAZOPYRIDINE HCL 100 MG TAB PO PRN (06:46)
[2021-12-23] MEDS: DUTASTERIDE 0.5 MG CAP PO SCH (08:46)
[2021-12-23] MEDS: MIDODRINE 2.5 MG TAB PO SCH ×3 (08:46→15:37)
[2021-12-23] MEDS: PANTOPRAZOLE SOD 40 MG TABEC PO SCH (08:46)
[2021-12-23] MEDS: SODIUM BICARBONATE 650 MG TAB PO SCH ×2 (08:46→15:37)
[2021-12-23] MEDS: DOCUSATE SODIUM 100 MG CAP PO PRN (10:10)
[2021-12-23] MEDS: MAGNESIUM/ALUMINUM/SIMETHICONE 30 ML UDC PO PRN (10:10)
[2021-12-23] MEDS ORDERED: LACTULOSE SYRUP 20 GM/30 ML UDC PO ONE (15:00)
[2021-12-23] MEDS ORDERED: BISACODYL 10 MG SUPP PR ONE (20:30)
[2021-12-23] MEDS: TAMSULOSIN HCL 0.4 MG CAP PO SCH (21:00)
[2021-12-24] VITALS (7 sets, daily range): BP systolic 120–147; BP diastolic 62–86
[2021-12-24 06:39] LABS: BASOPHILS % 0.3 % (0.0-1.0); EOSINOPHILS % 0.6 % (0.0-6.0); HEMOGLOBIN 12.5 g/dL (14.0-18.0); LYMPHOCYTES # (AUTO) 0.9 (1.0-3.2); LYMPHOCYTES % 13.1 % (18.0-39.1); MEAN CORPUSCULAR HEMOGLOBIN 30.3 pg (28-32); MEAN CORPUSCULAR HGB CONC 32.9 g/dL (31-35); MEAN CORPUSCULAR VOLUME 92.2 fL (81-99); MONOCYTES # (AUTO) 0.7 (0.2-0.8); MONOCYTES % 10.1 % (4.4-11.3); NEUTROPHILS # (AUTO) 5.1 (2.1-6.9); NEUTROPHILS % 75.5 % (38.7-80.0); PLATELET COUNT 291 x10e3/uL (140-360); RED BLOOD COUNT 4.12 x10e6/uL (4.3-5.7); RED CELL DISTRIBUTION WIDTH 18.3 % (11.7-14.4)
[2021-12-24 07:20] LABS: ALBUMIN 2.7 g/dL (3.5-5.0); ALBUMIN/GLOBULIN RATIO 0.7 (0.8-2.0); ANION GAP 18.8 mmol/L (8-16); CALCIUM 8.7 mg/dL (8.4-10.2); CREATININE, SERUM 1.48 mg/dL (0.72-1.25); MAGNESIUM 2.1 MG/DL (1.3-2.1); POTASSIUM 3.8 mmol/L (3.5-5.1)
[2021-12-24] MEDS: PANTOPRAZOLE SOD 40 MG TABEC PO SCH (07:30)
[2021-12-24] MEDS: MIDODRINE 2.5 MG TAB PO SCH ×3 (08:00→16:00)
[2021-12-24] MEDS: DUTASTERIDE 0.5 MG CAP PO SCH (09:00)
[2021-12-24] MEDS: SODIUM BICARBONATE 650 MG TAB PO SCH ×2 (09:00→18:23)
[2021-12-24] MEDS: FUROSEMIDE 40 MG TAB PO SCH (09:00)
[2021-12-24] MEDS ORDERED: FUROSEMIDE INJ 10 MG/ML 4 ML VIAL IV NR (10:00)
[2021-12-24] MEDS ORDERED: FUROSEMIDE INJ 10 MG/ML 4 ML VIAL IV ONE (17:00)
[2021-12-24] MEDS: TAMSULOSIN HCL 0.4 MG CAP PO SCH (20:52)
[2021-12-25] VITALS (7 sets, daily range): BP systolic 99–124; BP diastolic 50–77
[2021-12-25] MEDS: ACETAMINOPHEN 325 MG TAB PO PRN (01:02)
[2021-12-25] MEDS: FUROSEMIDE 40 MG TAB PO SCH (09:44)
[2021-12-25] MEDS: DUTASTERIDE 0.5 MG CAP PO SCH (09:44)
[2021-12-25] MEDS: SODIUM BICARBONATE 650 MG TAB PO SCH ×2 (09:44→18:14)
[2021-12-25] MEDS: PANTOPRAZOLE SOD 40 MG TABEC PO SCH (09:44)
[2021-12-25] MEDS: MIDODRINE 2.5 MG TAB PO SCH ×3 (09:46→18:14)
[2021-12-25] MEDS: ACETAMINOPHEN/CODEINE 300MG - 30MG TAB PO PRN ×2 (09:53→18:27)
[2021-12-25] MEDS: TAMSULOSIN HCL 0.4 MG CAP PO SCH (21:13)
[2021-12-26] VITALS (8 sets, daily range): BP systolic 98–121; BP diastolic 53–79
[2021-12-26] MEDS: MIDODRINE 2.5 MG TAB PO SCH ×3 (10:09→17:57)
[2021-12-26] MEDS: PHENAZOPYRIDINE HCL 100 MG TAB PO PRN ×2 (10:10→18:07)
[2021-12-26] MEDS: ACETAMINOPHEN/CODEINE 300MG - 30MG TAB PO PRN ×2 (10:10→18:07)
[2021-12-26] MEDS: SODIUM BICARBONATE 650 MG TAB PO SCH ×2 (10:10→17:56)
[2021-12-26] MEDS: PANTOPRAZOLE SOD 40 MG TABEC PO SCH (10:10)
[2021-12-26] MEDS: DUTASTERIDE 0.5 MG CAP PO SCH (10:10)
[2021-12-26] MEDS: FUROSEMIDE 40 MG TAB PO SCH (10:14)
[2021-12-26] MEDS ORDERED: MINERAL OIL 132 ML BTL PR ONE (12:30)
[2021-12-26] MEDS: DOCUSATE SODIUM 100 MG CAP PO PRN (18:07)
[2021-12-26] MEDS: MAGNESIUM HYDROXIDE 30 ML UDC PO PRN (18:08)
[2021-12-26] MEDS: TAMSULOSIN HCL 0.4 MG CAP PO SCH (20:53)
[2021-12-27] VITALS (7 sets, daily range): BP systolic 105–130; BP diastolic 55–73
[2021-12-27] MEDS: FUROSEMIDE 40 MG TAB PO SCH (10:56)
[2021-12-27] MEDS: MIDODRINE 2.5 MG TAB PO SCH ×3 (10:56→18:18)
[2021-12-27] MEDS: PANTOPRAZOLE SOD 40 MG TABEC PO SCH (10:57)
[2021-12-27] MEDS: SODIUM BICARBONATE 650 MG TAB PO SCH ×2 (10:57→18:13)
[2021-12-27] MEDS: DUTASTERIDE 0.5 MG CAP PO SCH (10:57)
[2021-12-27] MEDS: MAGNESIUM HYDROXIDE 30 ML UDC PO PRN (11:01)
[2021-12-27 14:17] LABS: ANION GAP 13.3 mmol/L (8-16); CREATININE, SERUM 1.28 mg/dL (0.72-1.25); POTASSIUM 3.3 mmol/L (3.5-5.1)
[2021-12-27] MEDS: TAMSULOSIN HCL 0.4 MG CAP PO SCH (18:13)
[2021-12-27] MEDS: ACETAMINOPHEN 325 MG TAB PO PRN (22:07)
[2021-12-27] MEDS: MELATONIN 3 MG TAB PO PRN (22:07)
[2021-12-28 00:55] VITALS: BP 98/50
[2021-12-28 05:38] VITALS: BP 99/56
[2021-12-28 08:30] VITALS: BP 99/56
[2021-12-28] MEDS: DUTASTERIDE 0.5 MG CAP PO SCH (08:55)
[2021-12-28] MEDS: SODIUM BICARBONATE 650 MG TAB PO SCH ×2 (08:56→16:28)
[2021-12-28] MEDS: PANTOPRAZOLE SOD 40 MG TABEC PO SCH (08:56)
[2021-12-28] MEDS: FUROSEMIDE 40 MG TAB PO SCH (08:56)
[2021-12-28] MEDS: MIDODRINE 2.5 MG TAB PO SCH ×3 (08:56→16:28)
[2021-12-28 10:18] VITALS: BP 96/73
[2021-12-28] MEDS ORDERED: POTASSIUM CHLORIDE 20 MEQ TAB CR PO ONE (11:00)
[2021-12-28] MEDS: ACETAMINOPHEN 325 MG TAB PO PRN (11:53)
[2021-12-28 12:00] VITALS: BP 119/62
[2021-12-28] MEDS ORDERED: FLOMAX0.4 MG PO (15:01)
[2021-12-28] MEDS ORDERED: MIDODRINE HCL2.5 MG PO (15:01)
[2021-12-28] MEDS ORDERED: SODIUM BICARBO650 MG PO (15:01)
[2021-12-28] MEDS ORDERED: MELATONIN3 MG PO (15:01)
[2021-12-28] MEDS ORDERED: ALBUTEROL2.5 MG/3 M NEB (15:01)
[2021-12-28] MEDS ORDERED: Magnesium/Alum/Simethicone PO (15:01)
== END 2021-12-28 18:03 | disposition home or self-care (01) | DRG 689 ==
LOC: ER 17:25 → ERHOLD 20:37 → INTOOBSV 20:37 → MED/SURG2 12-13 → OBSVTOIN 12-14 15:16
PROVIDERS: ADMIT Internal Medicine; ATTEND Internal Medicine
PROC: 0W993ZZ Drainage of Right Pleural Cavity, Percutaneous Approach (ICD-10-PCS; principal; 2021-12-14)
PROC: 0T9330Z Drainage of Right Kidney Pelvis with Drainage Device, Percutaneous Approach (ICD-10-PCS; 2021-12-19)
DX: N13.6 Pyonephrosis (principal); I50.43 Acute on chronic combined systolic (congestive) and diastolic (congestive) heart failure; E87.1 Hypo-osmolality and hyponatremia; I13.0 Hypertensive heart and chronic kidney disease with heart failure and stage 1 through stage 4 chronic kidney disease, or unspecified chronic kidney disease; J90 Pleural effusion, not elsewhere classified; E88.09 Other disorders of plasma-protein metabolism, not elsewhere classified; I48.0 Paroxysmal atrial fibrillation; Z79.01 Long term (current) use of anticoagulants; M19.90 Unspecified osteoarthritis, unspecified site; E83.51 Hypocalcemia; I25.10 Atherosclerotic heart disease of native coronary artery without angina pectoris; R91.8 Other nonspecific abnormal finding of lung field; D64.9 Anemia, unspecified; I08.3 Combined rheumatic disorders of mitral, aortic and tricuspid valves; Z20.822 Contact with and (suspected) exposure to COVID-19; N18.32 Chronic kidney disease, stage 3b; N17.9 Acute kidney failure, unspecified; Z95.810 Presence of automatic (implantable) cardiac defibrillator
CPT/HCPCS: 0223U; 32555; 36415; 50432; 51798; 71045; 71046; 71250; 74019; 74176; 74470; 76942; 80048; 80053; 81001; 82728; 83540; 83690; 83735; 83970; 84100; 84466; 84484; 84550; 85025; 85610; 85730; 93005; 94799; 96361; 99152; 99153; 99251; 99284; G0378; J0696; J1940; J2001; J2250; J2270; J3010; J7030; J7050; Q9967